=== PATIENT | male | born 1940 | race Caucasian/White ===

== ENCOUNTER 2018-08-16 09:08 | Emergency (ER) | payer OTHER, MEDICARE ==
[~2018-08-16] VITALS: Ht 188 cm; Wt 95.0 kg
[2018-08-16 11:32] LABS: URINE BILIRUBIN - DIPSTICK NEGATIVE (NEGATIVE); URINE BLOOD DIPSTICK NEGATIVE (NEGATIVE); URINE CLARITY CLEAR; URINE COLOR YELLOW; URINE GLUCOSE - DIPSTICK NEGATIVE (NEGATIVE); URINE KETONE NEGATIVE (NEGATIVE); URINE LEUK ESTERASE NEGATIVE (Negative); URINE NITRITE - DIPSTICK NEGATIVE (Negative); URINE PH 7.5 (4.5-8.0); URINE PROTEIN - DIPSTICK NEGATIVE (NEG-TRACE); URINE SPECIFIC GRAVITY 1.015; URINE UROBILINOGEN - DIPSTICK 0.2 E.U./dL (0.2)
[2018-08-16] MEDS ORDERED: FLEXERIL PO (11:52)
[2018-08-16] MEDS ORDERED: ULTRAM50 M1 PO (11:52)
[2018-08-16 12:48] VITALS: BP 130/78
== END 2018-08-16 12:48 | disposition home or self-care (01) | DRG 552 ==
LOC: EDBD 09:08 → ED 09:08
PROVIDERS: Emergency Medicine
DX: S16.1XXA Strain of muscle, fascia and tendon at neck level, initial encounter (principal); S05.12XA Contusion of eyeball and orbital tissues, left eye, initial encounter; S00.432A Contusion of left ear, initial encounter; S43.102A Unspecified dislocation of left acromioclavicular joint, initial encounter; S42.125A Nondisplaced fracture of acromial process, left shoulder, initial encounter for closed fracture; V49.49XA Driver injured in collision with other motor vehicles in traffic accident, initial encounter; Y92.414 Local residential or business street as the place of occurrence of the external cause